=== PATIENT | male | born 1945 | race Caucasian/White ===

== ENCOUNTER 2017-02-20 23:00 | Emergency (ER) | payer MEDICAID, OTHER ==
[~2017-02-20] VITALS: Ht 172.7 cm; Wt 96.5 kg
[~2017-02-20 23:00] MED LIST: ASPI-700; BICA50TA4 PO; CLON0.5T4 PO; HYD25 PO; LOSA25TA5 PO; METO50TA16 PO; NAPR275T83 PO
[2017-02-20 23:16] VITALS: Ht 172.7 cm; Wt 96.5 kg
[2017-02-21] MEDS ORDERED: ALBUTEROL 0.083% (NEB) 2.5 MG/3 ML AMP HHN STA (00:20)
[2017-02-21] MEDS ORDERED: IPRATROPIUM (NEB) 0.5 MG/2.5 ML AMP HHN ONE (00:30)
[2017-02-21] MEDS ORDERED: METHYLPREDNISOLONE 125 MG INJ IV ONE (00:30)
[2017-02-21] MEDS ORDERED: DIPHENHYDRAMINE 50 MG INJ IV ONE (00:30)
[2017-02-21] MEDS: FAMOTIDINE 20 MG TAB PO ONE ×2 (00:56→01:07)
--- NOTE | 2017-02-21 01:21 | RADRPT ---
PROCEDURE: XR Chest. CLINICAL INDICATION: Wheezing. TECHNIQUE: Single frontal view of the chest. COMPARISON: 09/06/2009. FINDINGS: Cardiomegaly. Lung inflation is improved over the interval. The lungs are clear. No signs of pleura l fluid or pneumothorax are seen. The osseous structures and soft tissues are unremarkable. IMPRESSION: No evidence for active cardiopulmonary disease. RPTAT: [facility] Physician Javi Date Time Electronically viewed and signed by Kyler Lucas Physician on 02/21/2017 01:21 RS/
--- NOTE | 2017-02-21 01:22 | RADRPT ---
PROCEDURE: Soft tissue of the neck CLINICAL INDICATION: Foreign body sensation in the neck. TECHNIQUE: AP and lateral soft tissue views of the neck were performed. COMPARISON: None FINDINGS: Unremarkable pharyngeal structures. Normal oral cavity soft tissues. Unremarkable endolaryngeal stru ctures. Normal soft tissues. No soft tissue swelling. No mass identified. No foreign body identified . Degenerative changes in the cervical spine with facet hypertrophy on the left. Normal bony alignmen t. No fracture identified. IMPRESSION: Unremarkable soft tissues of the neck. RPTAT: [facility] Physician Javi Date Time Electronically viewed and signed by Physician Javi on 02/21/2017 01:22 RS/
[2017-02-21] MEDS ORDERED: FAMOTIDINE 20 MG INJ IV ONE (01:30)
[2017-02-21] MEDS ORDERED: PRED50TA PO (01:45)
[2017-02-21] MEDS ORDERED: FAMO-18 PO (01:45)
[2017-02-21] MEDS ORDERED: BEN25 PO (01:45)
[2017-02-21] MEDS ORDERED: HC1C30 TOP (01:50)
--- NOTE | 2017-02-21 01:52 | ERD ---
ER Documentation Chief Complaint Date/Time DATE: 02/21/17 TIME: 01:51 Chief Complaint sore throat x 2 days. also c/o body rash/lip swelling. no tongue swelling HPI This is a very pleasant 71-year-old male that presents to the ER with his complaining of lip swelling, body rash and sore throat for the last 2 days. Patient states that he tried a new supplement which is an appetite suppressant about 5 days ago and that 2 days ago he developed the symptoms. Rash is located on patient's abdomen and is very itchy. Lip swelling started earlier today. He denies any tongue swelling he denies any difficulty in breathing. He denies any shortness of breath. He denies any chest pain. Patient denies any fevers or chills. Patient describes throat discomfort as a hoarseness in his voice and a scratchy feeling. ROS 12 point review of systems was done, all negative except per HPI. Medications Home Meds Active Scripts Hydrocortisone* Topical (Hydrocortisone* Topical) 1%-28.35 Gm Cream..g., 1 APPLIC TOP Q6 Y for ITCHING, #1 TUB Prov:RANDELL AVALOS 02/21/17 Diphenhydramine Hcl* (Benadryl*) 25 Mg Cap, 25 MG PO Q6, #30 CAP Prov:RANDELL AVALOS 02/21/17 Famotidine* (Pepcid*) 20 Mg Tablet, 20 MG PO BID for 5 Days, TAB Prov:RANDELL AVALOS 02/21/17 Prednisone* (Prednisone*) 50 Mg Tablet, 50 MG PO QHS for 3 Days, TAB Prov:RANDELL AVALOS 02/21/17 Reported Medications Metoprolol Succinate* (Toprol XL*) 50 Mg Tab.er.24h, 50 MG PO DAILY, #30 TAB 07/05/16 Hydrochlorothiazide* (Hydrochlorothiazide*) 25 Mg Tab, 25 MG PO DAILY, #30 TAB 07/05/16 Bicalutamide* (Bicalutamide*) 50 Mg Tablet, 50 MG PO DAILY, TAB 07/05/16 Naproxen Sodium* (Naproxen*) 275 Mg Tablet, 500 MG PO BID, TAB 07/05/16 Clonazepam* (Clonazepam*) 0.5 Mg Tablet, 0.5 MG PO TID, TAB 07/05/16 Losartan Potassium* (Losartan Potassium*) 25 Mg Tablet, 25 MG PO DAILY, TAB 07/05/16 Aspirin (Aneesh) 325 Mg Tab 09/23/09 Allergies Allergies: Coded Allergies: levofloxacin (Verified Allergy, Unknown, 02/20/17) PMhx/Soc History of Surgery: Yes (L5) Anesthesia Reaction: No Hx Neurological Disorder: No Hx Respiratory Disorders: No Hx Cardiac Disorders: Yes (HTN) Hx Psychiatric Problems: No Hx Miscellaneous Medical Probl: Yes (ruptured disc, nerve damage) Hx Alcohol Use: No Hx Substance Use: No Hx Tobacco Use: No Smoking Status: Former smoker Physical Exam Vitals Vital Signs Date Time Temp Pulse Resp B/P Pulse Ox O2 Delivery O2 Flow Rate FiO2 02/21/17 02:10 98.0 94 16 125/78 95 Room Air 02/21/17 01:05 77 20 94 21 02/20/17 23:16 99.4 79 20 142/75 97 Physical Exam GENERAL: The patient is well developed and appropriate for usual state of health , in no apparent distress. HEENT: Atraumatic. lip swelling. no tongue swelling. no eye swelling. no tonsillar erythema. no kissing tonsils or uvular deviation. CHEST: expiratory wheezing in all lung monahan. no rales ronchi or crackles. no stridor. HEART: Regular rate and rhythm. No murmurs, clicks, rubs or gallops. NEURO: Alert and oriented. CN 2-12 are intact. EXTREMETIES: no leg swelling or redness. no pitting edema SKIN: hive like rash on abdomen Results 24 hrs Current Medications Medications (Trade) Dose Ordered Sig/Srinivasan Route PRN Reason Start Time Stop Time Status Last Admin Dose Admin Methylprednisolone Sodium Succinate (Solu-Medrol) 125 mg ONCE ONCE IV 02/21/17 00:30 02/21/17 00:31 DC 02/21/17 00:55 Diphenhydramine HCl (Benadryl) 25 mg ONCE ONCE IV 02/21/17 00:30 02/21/17 00:31 DC 02/21/17 00:55 Famotidine (Pepcid) 20 mg ONCE ONCE PO 02/21/17 00:30 02/21/17 00:31 DC Albuterol (Proventil 0.083% (Neb)) 5 mg ONCE STAT HHN 02/21/17 00:20 02/21/17 00:24 DC 02/21/17 00:56 Ipratropium [place] (Atrovent 0.02% (Neb)) 0.5 mg ONCE ONCE HHN 02/21/17 00:30 02/21/17 00:31 DC 02/21/17 00:56 Famotidine (Pepcid Iv) 20 mg ONCE ONCE IV 02/21/17 01:30 02/21/17 01:31 DC 02/21/17 01:06 Procedures/MDM This is a 71-year-old male presents to the ER with lip swelling and a rash. I discussed this case with my supervising physician Dr. Ayala. He agreed with my medical decision making medical plan. Patient was given IV Solu-Medrol, Benadryl, famotidine. He was also given a nebulizing treatment. There were no adverse reactions. Patient's wheezing was completely improved upon reexamination. Patient stated that he felt significantly better and that his lips felt less swollen when I reexamined him. Rash is also improved. Patient will be sent home with a short course of steroids famotidine and Benadryl. He needs to follow-up with his primary care doctor within 1-2 days return to ER sooner symptoms worsen. My medical decision making was shared with the patient understands and agrees with plan. Departure Diagnosis: Primary Impression: Allergic reaction Condition: Stable Patient Instructions: First Aid: Allergic Reactions Additional Instructions: Call your primary care doctor TOMORROW for an appointment during the next 1-2 days.See the doctor sooner or return here if your condition worsens before your appointment time. RANDELL AVALOS Feb 21, 2017 01:52
[2017-02-21 02:10] VITALS: BP 125/78; PULSE 94; RESP 16; TEMP 98
== END 2017-02-21 02:11 | disposition home or self-care (01) ==
LOC: FTE 23:00
DX: R21 Rash and other nonspecific skin eruption (principal); L29.9 Pruritus, unspecified; R22.0 Localized swelling, mass and lump, head; I10 Essential (primary) hypertension; Z79.82 Long term (current) use of aspirin; Z87.891 Personal history of nicotine dependence
CPT/HCPCS: 70360; 71010; 94664; 96374; 96375; 99284; J1200; J2930

== ENCOUNTER 2017-02-26 09:10 | Emergency (ER) | payer OTHER ==
[~2017-02-26] VITALS: Ht 172.7 cm; Wt 95.5 kg
[~2017-02-26 09:10] MED LIST changes: +BEN25 PO; +FAMO-18 PO; +HC1C30 TOP; +PRED50TA PO
[2017-02-26 09:14] VITALS: Ht 172.7 cm; Wt 95.5 kg
[2017-02-26] MEDS ORDERED: morphine 4 MG/ML VIAL IV STA ×2 (10:18→11:02)
--- NOTE | 2017-02-26 10:28 | ERD ---
ER Documentation Chief Complaint Date/Time DATE: 02/26/17 TIME: 10:27 Chief Complaint MID BACK PAIN, ABDOMINAL PAIN HPI There is a 71-year-old male presents for rapid onset sharp pain between his shoulder blades. He has had back problems with pain before but usually in his lower back.. He thinks that he had shortness of breath that time. Currently has no shortness of breath and the pain has subsided somewhat but he still feels it in his upper thoracic area. No fevers or chills recently. ROS All systems reviewed and are negative except as per history of present illness. Medications Home Meds Active Scripts Ranitidine Hcl* (Zantac*) 150 Mg Tablet, 150 MG PO BID, #60 TAB Prov:AFRICA THOMPSON DO 02/26/17 Methocarbamol* (Robaxin*) 750 Mg Tablet, 750 MG PO TID, #20 TAB Prov:AFRICA THOMPSON DO 02/26/17 Naproxen* (Naproxen*) 500 Mg Tablet, 500 MG PO BID Y for PAIN, #20 TAB Prov:AFRICA THOMPSON DO 02/26/17 Hydrocodone/Acetaminophen ([place] 10-325 Tablet) 1 Each Tablet, 1 EACH PO Q6, # 20 TAB Prov:AFRICA THOMPSON DO 02/26/17 Hydrocortisone* Topical (Hydrocortisone* Topical) 1%-28.35 Gm Cream..g., 1 APPLIC TOP Q6 Y for ITCHING, #1 TUB Prov:RANDELL AVALOS 02/21/17 Diphenhydramine Hcl* (Benadryl*) 25 Mg Cap, 25 MG PO Q6, #30 CAP Prov:RANDELL AVALOS 02/21/17 Famotidine* (Pepcid*) 20 Mg Tablet, 20 MG PO BID for 5 Days, TAB Prov:RANDELL AVALOS 02/21/17 Prednisone* (Prednisone*) 50 Mg Tablet, 50 MG PO QHS for 3 Days, TAB Prov:RANDELL AVALOS 02/21/17 Reported Medications Metoprolol Succinate* (Toprol XL*) 50 Mg Tab.er.24h, 50 MG PO DAILY, #30 TAB 07/05/16 Hydrochlorothiazide* (Hydrochlorothiazide*) 25 Mg Tab, 25 MG PO DAILY, #30 TAB 07/05/16 Bicalutamide* (Bicalutamide*) 50 Mg Tablet, 50 MG PO DAILY, TAB 07/05/16 Naproxen Sodium* (Naproxen*) 275 Mg Tablet, 500 MG PO BID, TAB 07/05/16 Clonazepam* (Clonazepam*) 0.5 Mg Tablet, 0.5 MG PO TID, TAB 07/05/16 Losartan Potassium* (Losartan Potassium*) 25 Mg Tablet, 25 MG PO DAILY, TAB 07/05/16 Aspirin (Aneesh) 325 Mg Tab 09/23/09 Allergies Allergies: Coded Allergies: levofloxacin (Verified Allergy, Unknown, 02/26/17) PMhx/Soc History of Surgery: Yes (L5) Anesthesia Reaction: No Hx Neurological Disorder: No Hx Respiratory Disorders: No Hx Cardiac Disorders: Yes (HTN) Hx Psychiatric Problems: No Hx Miscellaneous Medical Probl: Yes (ruptured disc, nerve damage, prostate CA) Hx Alcohol Use: No Hx Substance Use: No Hx Tobacco Use: No Smoking Status: Never smoker Physical Exam Vitals Vital Signs Date Time Temp Pulse Resp B/P Pulse Ox O2 Delivery O2 Flow Rate FiO2 02/26/17 11:10 78 146/76 02/26/17 10:40 78 169/73 02/26/17 10:31 Nasal Cannula 2 02/26/17 09:14 98.3 71 19 209/103 97 Physical Exam Const: [] Head: Atraumatic Eyes: Normal Conjunctiva ENT: Normal External Ears, Nose and Mouth. Neck: Full range of motion..~ No meningismus. Resp: Clear to auscultation bilaterally Cardio: Regular rate and rhythm, no murmurs Abd: Soft, non tender, non distended. Normal bowel sounds Skin: No petechiae or rashes Back: No midline or flank tenderness Ext: No cyanosis, or edema Neur: Awake and alert Psych: Normal Mood and Affect Result Diagram: 02/26/17 1031 02/26/17 1031 Results 24 hrs Laboratory Tests Test 02/26/17 10:31 White Blood Count 9.810^3/ul Red Blood Count 4.8210^6/ul Hemoglobin 15.3g/dl Hematocrit 43.0% Mean Corpuscular Volume 89.2fl Mean Corpuscular Hemoglobin 31.7pg Mean Corpuscular Hemoglobin Concent 35.6g/dl Red Cell Distribution Width 12.1% Platelet Count 95143^3/UL Mean Platelet Volume 9.3fl Neutrophils % 62.8% Lymphocytes % 17.1% Monocytes % 11.1% Eosinophils % 3.9% Basophils % 1.0% Nucleated Red Blood Cells % 0.0/100WBC Neutrophils # 6.110^3/ul Lymphocytes # 1.710^3/ul Monocytes # 1.110^3/ul Eosinophils # 0.410^3/ul Basophils # 0.110^3/ul Nucleated Red Blood Cells # 0.010^3/ul Prothrombin Time 13.5Sec Prothrombin Time Ratio 1.1 INR International Normalized Ratio 1.03 Activated Partial Thromboplast Time 25.7Sec Sodium Level 137mmol/L Potassium Level 3.2mmol/L Chloride Level 101mmol/L Carbon Dioxide Level 30mmol/L Anion Gap 9 Blood Urea Nitrogen 25mg/dl Creatinine 0.98mg/dl Glucose Level 92mg/dl Calcium Level 9.1mg/dl Total Bilirubin 0.3mg/dl Direct Bilirubin 0.00mg/dl Indirect Bilirubin 0.3mg/dl Aspartate Amino Transf (AST/SGOT) 31IU/L Alanine Aminotransferase (ALT/SGPT) 44IU/L Alkaline Phosphatase 67IU/L Troponin I < 0.012ng/ml B-Type Natriuretic Peptide 337PG/ML Total Protein 6.8g/dl Albumin 4.1g/dl Lipase 92U/L Current Medications Medications (Trade) Dose Ordered Sig/Srinivasan Route PRN Reason Start Time Stop Time Status Last Admin Dose Admin Morphine Sulfate (morphine) 4 mg ONCE STAT IV 02/26/17 10:18 02/26/17 10:21 DC 02/26/17 10:33 Labetalol HCl (Labetalol) 20 mg ONCE ONCE IV 02/26/17 10:30 02/26/17 10:48 DC Labetalol HCl (Labetalol) 10 mg ONCE ONCE IV 02/26/17 11:00 02/26/17 11:01 DC 02/26/17 10:50 Morphine Sulfate (morphine) 4 mg ONCE STAT IV 02/26/17 11:02 02/26/17 11:04 DC 02/26/17 11:07 Potassium Chloride (Klor-Con 20) 40 meq ONCE STAT PO 02/26/17 13:39 02/26/17 13:41 DC 02/26/17 14:00 Ketorolac Tromethamine (Toradol) 30 mg ONCE STAT IV 02/26/17 13:39 02/26/17 13:41 DC 02/26/17 13:59 Procedures/MDM Thoracic back pain with muscle spasm and T2 sclerosis. patient's pain pattern processes markedly elevated blood pressure gave concern for possible aortic dissection. CT is negative for any dissection but did show degenerative joint disease of the spine with sclerosis at T2. Patient was treated with morphine and Toradol. His pain was well controlled in the emergency room. No signs of cardiac ischemia. This point it is prudent to discharge the patient with referral for an MRI to better evaluate the T2 vertebrae. Patient also taken his blood pressure medications this morning but they had not had sufficient time to take effect. Also had mild hypokalemia treated with K-Dur. His blood pressure has remained stable after being monitored for a few hours. EKG interpretation: Sinus bradycardia rate of 56, first-degree AV block, incomplete left bundle branch block, normal axis, no ST or T-wave changes concerning for acute ischemia. nurse monitoring interpretation sinus bradycardia with normal sinus rhythm. No other arrhythmias Chest x-ray interpretation: I see no acute process. I see no widened mediastinum, no pneumothorax, no pulmonary edema, no infiltrate, no fractures CT angio chest abdomen: No evidence of aortic dissection or pulmonary embolism. Patient does have degenerative joint disease of the spine as well as sclerosis particularly at the T2 level. No signs of abdominal obstruction, no free air, no abnormal fat stranding. Critical care time 33 minutes: This includes treatment of hypertensive urgency, treatment of unstable vital signs, use of labetalol as of vasoactive medication to lower blood pressure, multiple this patient's bedside to reassess status, chart reviewed, discussion with patient. This does not include any billable procedures Departure Diagnosis: Primary Impression: Spasm of back muscles Additional Impressions: Thoracic back pain Hypertensive urgency Condition: Stable AFRICA THOMPSON DO Feb 26, 2017 10:28
[2017-02-26] MEDS ORDERED: LABETALOL HCL 20MG INJ IV ONE ×2 (10:30→11:00)
[2017-02-26 10:50] LABS: ADD SCAN DIFF NO
[2017-02-26 11:01] LABS: BASOPHIL # 0.1 10^3/ul (0.0-0.1); EOSINOPHILS # 0.4 10^3/ul (0.0-0.5); EOSINOPHILS % 3.9 % (0.0-7.0); HEMOGLOBIN 15.3 g/dl (14.0-18.0); LYMPHOCYTES # 1.7 10^3/ul (0.8-2.9); LYMPHOCYTES % 17.1 % (15.0-51.0); MEAN CORPUSCULAR HEMOGLOBIN 31.7 pg (29.0-33.0); MEAN CORPUSCULAR HGB CONC 35.6 g/dl (32.0-37.0); MEAN CORPUSCULAR VOLUME 89.2 fl (82.0-101.0); MEAN PLATELET VOLUME 9.3 fl (7.4-10.4); MONOCYTE # 1.1 10^3/ul (0.3-0.9); MONOCYTES % 11.1 % (0.0-11.0); NEUTROPHIL # 6.1 10^3/ul (1.6-7.5); NEUTROPHILS % 62.8 % (39.0-77.0); PLATELET COUNT 174 10^3/UL (140-415); RED BLOOD COUNT 4.82 10^6/ul (4.70-6.10); RED CELL DISTRIBUTION WIDTH 12.1 % (11.5-14.5); WHITE BLOOD COUNT 9.8 10^3/ul (4.8-10.8)
[2017-02-26 11:16] LABS: ALANINE AMINOTRANSFERASE 44 IU/L (13-69); ALBUMIN 4.1 g/dl (3.3-4.9); ALKALINE PHOSPHATASE 67 IU/L (42-121); ANION GAP 9 (8-16); ASPARTATE AMINO TRANSFERASE 31 IU/L (15-46); BILIRUBIN,INDIRECT 0.3 mg/dl (0-1.1); BILIRUBIN,TOTAL 0.3 mg/dl (0.2-1.3); BLOOD UREA NITROGEN 25 mg/dl (7-20); CALCIUM 9.1 mg/dl (8.4-10.2); CARBON DIOXIDE 30 mmol/L (21-31); CHLORIDE 101 mmol/L (97-110); CREATININE 0.98 mg/dl (0.61-1.24); GLUCOSE 92 mg/dl (70-220); INR 1.03; POTASSIUM 3.2 mmol/L (3.5-5.1); PROTIME 13.5 Sec (12.2-14.2); PT RATIO 1.1; SODIUM 137 mmol/L (135-144); TOTAL PROTEIN 6.8 g/dl (6.1-8.1)
[2017-02-26 11:17] LABS: PARTIAL THROMBOPLASTIN TIME 25.7 Sec (25.0-35.0)
[2017-02-26 11:27] LABS: B-TYPE NATRIURETIC PEPTIDE 337 PG/ML (0-125)
[2017-02-26 11:57] LABS: TROPONIN-I < 0.012 ng/ml (0.00-0.12)
[2017-02-26] MEDS ORDERED: IOHEXOL 100 ML ONE (12:00)
[2017-02-26] MEDS ORDERED: IOHEXOL 350MG/ML 50 ML BTL ONE (12:00)
[2017-02-26] MEDS ORDERED: SOD CHLORIDE 0.9% 100 ML ONE (12:00)
--- NOTE | 2017-02-26 12:02 | RADRPT ---
PROCEDURE: XR Chest. CLINICAL INDICATION: Chest pain TECHNIQUE: AP view of the chest was obtained. COMPARISON: 09/06/2009 FINDINGS: Cardiac silhouette size is within normal limits. The lungs are clear. No pleural effusion or pneu mothorax is identified. Visualized osseous structures appear intact IMPRESSION: No evidence of active cardiopulmonary disease. RPTAT: GG .Benedicto Collier MD, MD Date Time Electronically viewed and signed by .Benedicto Collier MD, on 02/26/2017 12:02 .O/
--- NOTE | 2017-02-26 12:52 | RADRPT ---
PROCEDURE: CTA Chest, Abdomen and Pelvis with intravenous contrast CLINICAL INDICATION: Chest and abdominal pain. TECHNIQUE: CTA of the chest, abdomen, and pelvis was performed on a multidetector scanner followin g the uncomplicated administration of 100 cc Omnipaque 350 IV contrast. Coronal, sagittal and 3-D images were obtained from the axial data set. One or more of the following dose reduction techniques were used: automated exposure control, adjustment of the mA and/or kV according to patient size, u se of iterative reconstruction technique. CTDI = 16.47 mGy. DLP = 1444.32 mGy-cm. COMPARISON: None available FINDINGS: CTA chest: There is no thoracic aortic aneurysm or dissection. Visualized portions of the great vessels are pa tent without significant stenosis. Scattered aortic atherosclerotic calcifications are present. Th e heart size is normal without pericardial effusion. There is no central pulmonary embolism. No me diastinal, hilar, axillary or supraclavicular lymphadenopathy is identified. Mild bibasilar atelectasis is noted. No acute infiltrate, pleural effusion, pulmonary edema or pneu mothorax is identified. The central tracheobronchial tree is clear. No pulmonary nodule or mass is identified. There is diffuse sclerosis of the T2 vertebral body. CTA abdomen and pelvis: There is no abdominal aortic aneurysm or dissection. Bilateral iliac arteries are patent without si gnificant stenosis. Aortoiliac atherosclerotic calcification and plaque are noted. Celiac artery, SMA, KVNG and bilateral renal arteries are patent without significant stenosis. There is no retroper itoneal hematoma or lymphadenopathy. The harriett hepatis region is clear. Liver, gallbladder, biliary tree, pancreas, spleen, adrenal glands and left kidney are unremarkable except for benign renal cysts. Tiny nonobstructive right renal calculus is noted. No ureterolithia sis or obstructive uropathy is identified. The stomach is grossly unremarkable. There is no bowel obstruction, free intraperitoneal air or abscess. Sigmoid diverticulosis is seen without diverticulitis. The appendix is well visualized and normal. Urinary bladder is grossly unr emarkable. No pelvic mass, free fluid or lymphadenopathy is identified. Fat containing right ingui nal hernia is noted without incarceration. The surrounding osseous structures are remarkable for diffuse degenerative spondylosis of the spine, as well as severe bilateral hip joint osteoarthrosis. No osteolytic or osteoblastic lesion is de tected. IMPRESSION: 1. No aortic aneurysm or dissection is identified. Aortoiliac atherosclerotic calcifications and p laque are noted. 2. There is diffuse sclerosis of the T2 vertebral body, of uncertain etiology. Neoplasm or metasta tic disease is not excluded. Consider further evaluation. 3. Tiny nonobstructive right renal calculus is seen, without ureterolithiasis or obstructive uropat hy. 4. Sigmoid diverticulosis is seen without diverticulitis. 5. Fat-containing right inguinal hernia is noted, without incarceration. 6. There is diffuse degenerative spondylosis of the spine. Bilateral hip joint osteoarthrosis is s een as well. No acute fracture or dislocation is identified. 7. No mass, lymphadenopathy, or focal acute inflammatory process is identified. RPTAT: HDWR .Gurmeet Ovalle MD, MD Date Time Electronically viewed and signed by .Gurmeet Ovalle MD, on 02/26/2017 12:52 .R/
[2017-02-26] MEDS ORDERED: KETOROLAC 30 MG INJ IV STA (13:39)
[2017-02-26] MEDS ORDERED: POTASSIUM CHLORIDE (SR) 20 MEQ TAB PO STA (13:39)
[2017-02-26] MEDS ORDERED: RANI150T9 PO (14:38)
[2017-02-26] MEDS ORDERED: HYDR-902 PO (14:38)
[2017-02-26] MEDS ORDERED: METH-70 PO (14:38)
[2017-02-26] MEDS ORDERED: NAPR-688 PO (14:38)
[2017-02-26 15:14] VITALS: BP 166/71; PULSE 64; RESP 18; TEMP 98
== END 2017-02-26 15:20 | disposition home or self-care (01) ==
LOC: E/R 09:10 → FTE 15:20
DX: M62.830 Muscle spasm of back (principal); M54.6 Pain in thoracic spine; I16.0 Hypertensive urgency; I10 Essential (primary) hypertension; R06.02 Shortness of breath; Z79.82 Long term (current) use of aspirin; Z85.46 Personal history of malignant neoplasm of prostate
CPT/HCPCS: 71010; 71275; 75635; 80048; 80076; 83690; 83880; 84484; 85025; 85610; 85730; 93005; J1885; J2270; Q9967; 36415; 96374; 96375; 96376